=== PATIENT | female | born 1965 | race Caucasian/White ===

== ENCOUNTER 2016-12-05 11:22 | Inpatient (IN) ==
--- NOTE | 2016-12-05 17:33 | IRU History & Physical Report ---
HPI IRU Date: 718 Chief complaint: I'm weak HPI: Mrs. Pinedo has a rather complex past history of back problems and multiple sclerosis. Recently she underwent an instrumented posterior fusion from T11 down to L4 on December 01, 2016. The recent history starts several months ago when she was noticing worsening right neck pain. She has a history of prior fusion at C5-7 in 2008. She was referred to Dr. Bravo in [place]. He ordered a CT myelogram earlier this year demonstrating a problem with the neck with stenosis as well as lumbar spinal stenosis. He said that she would need surgery on both of those eventually and she chose to do the neck first. Cervical spine surgery was therefore done by Dr. Bravo on 09/01/2016 and she tolerated that well. Subsequently she underwent the lumbar spine surgery as noted above on December 01, 2016. She had had 2 previous lumbar laminectomies or otherwise lumbar surgeries in 2002 and 2008. Exact name of the procedure of those 2 procedures are not available at this time. The patient does have multiple sclerosis since 1994. As a result that she has left leg numbness and drop foot on the left side. At home, prior to this most recent lumbar spine surgery she did not use any assistive devices. She was independent for transfers, moderate independent for bathing and minimal assistance for lower extremity dressing, moderate independent for stairs and independent for grooming. However at the present time since the surgery she is maximal assist for bathing, upper and lower extremity dressing, total assistance for toileting minimal assistance for walking with a rolling walker. She does wear a back brace at the present time which is also a factor in her recovery. She did have some drainage from the surgical site. In addition she had an elevated white blood cell count. The patient does have obesity and is at high risk of infection as well as respiratory infection. She has risk for blood clots including DVTs and pulmonary embolism as well as risk for pain and leg weakness. This increases her risk for falling. Because of these risk factors, she is felt to be a good candidate for inpatient rehabilitation and is therefore admitted to the IRU. The following medical conditions are noted and require physician monitoring and treatment. 1. Multiple sclerosis with chronic leg weakness and left foot drop 2. Obesity with risk for infection 3. Recent drainage from laminectomy site 4. 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 Leukocytosis The following therapies will be needed: 1. Physical therapy: for transfers and ambulation and stairs. 2. Occupational therapy: for ADL's and transfers. 3. Dietitian: To improve nutrition and work on weight reduction by consuming fewer calories 4. Medical management: for the above conditions. 5. 24 hour Rehabilitation Nursing to monitor and address the following: Pain management and strengthening. Review of Systems - Constitutional Constitutional: Present: fatigue - EENMT Eyes: Present: change in vision (she reports chronic vision changes related to her multiple sclerosis.). Absent: blurry vision - Cardiovascular Cardiovascular: Absent: chest pain, palpitations, dyspnea on exertion Rhythm: Present: regular rhythm - Respiratory Respiratory: Absent: cough, dyspnea, hemoptysis, dyspnea on exertion - Gastrointestinal Gastrointestinal: Present: constipation. Absent: abdominal pain, change in bowel habits - Musculoskeletal Musculoskeletal: Present: abnormal gait, back pain - Neurological Neurological: Present: abnormal gait, burning sensations, focal weakness, paresthesias PFSH 1. Multiple sclerosis 2. Spinal stenosis 3. Hypertension 4. Obesity with BMI 44 5. Gastroesophageal reflux disease 6. Depression 7. Glaucoma 8. History of migraines 9. Restless leg syndrome Surgical History: 1. Lumbar spine surgery 2002. 2. Repeat lumbar spine surgery 2008. 3. Fusion C5-7 2008. 4. Cervical spine surgery 09/01/2016. 5. Posterior instrumented fusion T11-L4 12/01/2016. 5. Tonsillectomy and adenoidectomy. 6. PE tubes. 7. 3 C-sections. 8. Endometrial ablation. 9. Left foot surgery. 10. Right knee arthroscopy. 11. Appendectomy. 12. cholecystectomy Family History: Father: Living. Has spinal stenosis and hypertension. Mother: Living with hypertension, hyperlipidemia, back problems and knee problems - Social History Smoking status: Former smoker packs per day: 1 Packs-years: 23 (smoked from age 20 through age 43 one pack per day or less) Substance use type: does not use Alcohol intake: former Household members: spouse Current occupational status: disabled Current residence: Apartment/Private Home Medications Home Medications Medication Instructions Recorded Confirmed Type Amantadine [Symmetrel] 100 mg PO 0900,1300 12/05/16 12/05/16 History Baclofen [Lioresal] 1 tab PO BID 12/05/16 12/05/16 History Cholecalciferol (Vitamin D3) 1 tab PO DAILY 12/05/16 12/05/16 History [Vitamin D3] Cyanocobalamin (Vitamin B-12) 1 tab PO DAILY 12/05/16 12/05/16 History [Vitamin B-12] Cyclobenzaprine [Flexeril] 10 mg PO Q8H PRN 12/05/16 12/05/16 History Dexamethasone [Decadron] 4 mg IV Q6H 12/05/16 12/05/16 History Dimethyl Fumarate [Tecfidera] 240 mg PO BID 12/05/16 12/05/16 History Escitalopram Oxalate [Lexapro] 20 mg PO DAILY 12/05/16 12/05/16 History Hydrocodone/APAP 10/325 [[place] 1 - 2 tab PO Q4H PRN 12/05/16 12/05/16 History 10/325] Losartan Potassium [Cozaar] 100 mg PO HS 12/05/16 12/05/16 History Methylphenidate. [Ritalin] 10 mg PO 0900,1300 12/05/16 12/05/16 History Pantoprazole Sodium [Protonix] 40 mg PO ACB 12/05/16 12/05/16 History Pramipexole Di-HCl [Mirapex] 0.125 mg PO HS 12/05/16 12/05/16 History Pregabalin Cap [Lyrica] 50 mg PO BID 12/05/16 12/05/16 History Sennosides/Docusate Sodium 2 tab PO HS 12/05/16 12/05/16 History [Senokot-S Tablet] Spironolactone [Aldactone] 25 mg PO DAILY 12/05/16 12/05/16 History Results IRU - Labs Labs: Reviewed records from [place]. Exam Vital Signs: Temperature 98.0 F 12/05/16 16:00 Pulse Rate 90 12/05/16 16:00 Respiratory Rate 16 12/05/16 16:00 Blood Pressure 141/77 H 12/05/16 16:00 Pulse Oximetry 98 12/05/16 16:00 Oxygen Delivery Method Room Air Weight: 136.4 kg - Constitutional Present: mild distress - Routine HEENT Exam Head: Present: normocephalic, atraumatic Eye: Present: EOMI, PERRL ENT: Present: mucous membranes moist, oropharynx clear - Routine Neck Exam Present: supple, full ROM - Routine Respiratory Exam Present: CTA bilaterally - Routine Cardiovascular Exam Present: RRR, S1, S2, no murmur - Routine Abdominal Exam Present: soft, normoactive bowel sounds, non distended, non tender - Routine Extremities Exam Present: no edema - Routine Skin Exam Present: intact - Routine Neurological Exam Present: alert, oriented X3, CN II-XII intact, sensory deficit, moving all extremities - Routine Psychiatric Exam Present: normal affect, normal thought process, cooperative, good insight, good judgment IRU A/P (1) Status post laminectomy with spinal fusion Current visit: Yes Status: Acute Patient is status post laminectomy and will require pain management and strengthening of her lower extremities in view of her spinal stenosis. (2) Multiple sclerosis Current visit: Yes Status: Chronic She has chronic left foot drop and muscle weakness related to her multiple sclerosis. This is particularly noted in the left lower extremity. (3) Hypertension, benign essential, goal below 140/90 Current visit: Yes Status: Chronic (4) Obesity, Class III, BMI 40-49.9 (morbid obesity) Current visit: Yes Status: Chronic (5) Anemia Qualifiers: Anemia type: unspecified type Qualified Code(s): D64.9 - Anemia, unspecified Current visit: Yes Status: Acute Hemoglobin 11.1 in [place]. We will check this out further and monitor her hemoglobin. (6) Leukocytosis Qualifiers: Leukocytosis type: other Qualified Code(s): D72.828 - Other elevated white blood cell count Current visit: Yes Status: Acute White count is 14,000. May be related to corticosteroid usage versus infection. We'll monitor closely. DVT Prophylaxis: SCD's Resuscitation Status: Full Code - Course Hospital Course: Tunde Jackman MD: - Interventions to Obtain Goals Goals Progress/Modifications: Our goal will be to improve strength and ambulation, observe for evidence of infection, evaluate anemia and leukocytosis. Our intent is to get her back home where she can take care of herself safely.
--- NOTE | 2016-12-05 17:52 | IRU 24Hr Post Admit Eval ---
24 Hr Post Admission Physical - Relevant Changes Relevant Changes: No Reviewed: I have reviewed the patient's information and concur with the finding and results of the pre-admission screen. Certification: I certify the patient for rehabilitation. - Patient Condition (1) Status post laminectomy with spinal fusion Status: Acute Code(s): Z98.1 - Arthrodesis status Classification: Present on IRF Admission, IRF Tx That Should Address Diagnosis, Diagnosis Requiring Medical Follow Up (2) Multiple sclerosis Status: Chronic Code(s): G35 - Multiple sclerosis Classification: Present on IRF Admission, IRF Tx That Should Address Diagnosis, Diagnosis Requiring Medical Follow Up (3) Hypertension, benign essential, goal below 140/90 Status: Chronic Code(s): I10 - Essential (primary) hypertension Classification: Present on IRF Admission, Diagnosis Requiring Medical Follow Up (4) Obesity, Class III, BMI 40-49.9 (morbid obesity) Status: Chronic Code(s): E66.01 - Morbid (severe) obesity due to excess calories Classification: Present on IRF Admission, Diagnosis Requiring Medical Follow Up (5) Anemia Status: Acute Qualifiers: Anemia type: unspecified type Qualified Code(s): D64.9 - Anemia, unspecified Code(s): D64.9 - Anemia, unspecified Classification: Present on IRF Admission, Diagnosis Requiring Medical Follow Up (6) Leukocytosis Status: Acute Qualifiers: Leukocytosis type: other Qualified Code(s): D72.828 - Other elevated white blood cell count Code(s): D72.829 - Elevated white blood cell count, unspecified Classification: Present on IRF Admission, Diagnosis Requiring Medical Follow Up - Prior Functional Status Lives With: Spouse Residence Type: Apartment/Private Home Assitive Devices: None Prior Functional Status: Indep. at home or school, Used no assistive device - Current Functional Status Failed Alternative Therapy: Arrived from Acute Care Patient Requirements: The patient requires oversight by rehabilitation physician to manage their rehabilitation treatment plan and multidisciplinary approach to care that can only be provided in an IRF and requires a multidisciplinary approach to care, provided by professional PTs, OTs, STs, dieticians, RTs, rehabilitation nurses and is not available in lesser levels of care. Limitiations Req: Mobility Impairment, ADL Impairment, Limited Mobility Physical Therapy Minutes: 90 Occupational Therapy Minutes: 90 Therapy: The patient is to receive therapy at least 5 days a week. - Complications/Comorbidities Barriers to Discharge: Weakness, Balance, Endurance, Pain Control - Plan to Avoid Complications Plan to Avoid Complications: The patient cannot receive this care in a lesser intensive setting such as Senior Care or Outpatient Therapy due to the patient requiring the following : Need for 24-hour rehabilitation nursing monitoring of her pain, medical management and evaluation of anemia and leukocytosis, pre-existing multiple sclerosis with muscle weakness involving the left lower extremity requiring a coordinated inpatient approach .
[2016-12-05 18:49] VITALS: BMI 44.4
[2016-12-05] MEDS ORDERED: SENNA + DOCUSATE TABLET PO SCH (22:00)
[2016-12-05] MEDS: (Dimethyl Fumarate [Tecfidera] 240 MG) PO SCH (22:15)
[2016-12-05] MEDS: BACLOFEN 10 MG TABLET PO SCH (22:16)
[2016-12-05] MEDS: PREGABALIN 50 MG CAPSULE PO SCH (22:16)
[2016-12-05] MEDS: PRAMIPEXOLE 0.25 MG TABLET PO SCH (22:16)
[2016-12-05] MEDS: LOSARTAN 100 MG TABLET PO SCH (22:24)
[2016-12-05] MEDS: HYDROCODONE/APAP 10 MG/325 MG TABLET PO PRN (22:25)
[2016-12-05] MEDS: CYCLOBENZAPRINE 10 MG TABLET PO PRN (22:25)
[2016-12-06] MEDS: PANTOPRAZOLE 40 MG TABLET PO SCH (06:37)
[2016-12-06] MEDS: BACLOFEN 10 MG TABLET PO SCH ×2 (09:05→21:00)
[2016-12-06] MEDS: SPIRONOLACTONE 25 MG TABLET PO SCH (09:05)
[2016-12-06] MEDS: ESCITALOPRAM 20 MG TABLET PO SCH (09:05)
[2016-12-06] MEDS: METHYLPHENIDATE 10 MG TABLET PO SCH ×2 (09:05→13:09)
[2016-12-06] MEDS: AMANTADINE 100 MG CAPSULE PO SCH ×2 (09:07→13:11)
[2016-12-06] MEDS: PREGABALIN 50 MG CAPSULE PO SCH ×2 (09:08→21:00)
[2016-12-06] MEDS: CYANOCOBALAMIN (B-12) 500mcg TABLET PO SCH (09:08)
[2016-12-06] MEDS: (Dimethyl Fumarate [Tecfidera] 240 MG) PO SCH ×2 (09:11→21:02)
[2016-12-06] MEDS ORDERED: ELETRIPTAN 40 MG PO PRN (11:30)
--- NOTE | 2016-12-06 11:38 | IRU Progress Note ---
- Subjective/Serverity of Illness Samara says that she was able to sleep reasonably well during the night. She is standing at the sink with therapist present. She denies any shortness of breath or chest pain. She does have a tremor of the left upper extremity which she attributes to the multiple sclerosis. 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 However she is just getting started with therapy. She says that the pain is reasonably well controlled at present. It is noted that she has a prescription for cephalexin 4 times daily. This was not on the transferring orders however. I did call Dr. Bravo's office today and spoke with his nurse. She says that that is a standing order to provide Keflex 500 mg 4 times daily for 2 weeks. We will do this per his request. Exam Vital Signs: Temperature 98.2 F 12/06/16 09:47 Pulse Rate 96 12/06/16 09:47 Respiratory Rate 16 12/06/16 09:47 Blood Pressure 154/79 H 12/06/16 09:47 Pulse Oximetry 99 12/06/16 09:47 Oxygen Delivery Method Room Air Height: 1.75 m Weight: 136.4 kg Body Mass Index: 44.4 - Constitutional Present: mild distress, morbidly obese Comments: The patient is awake, alert and oriented and in no acute distress. Pupils are equal. The neck is supple. Chest: Clear to auscultation bilaterally. Cor: RR with no [place], click nor murmur Abd: soft with normo-active bowel sounds. There are no masses, no tenderness and no guarding. Extremities: No edema is noted. Cognition appears normal. There is evidence of tremor in the left upper extremity as well as bilateral muscle weakness. - Routine HEENT Exam Head: Present: normocephalic Eye: Present: EOMI ENT: Present: mucous membranes moist - Routine Respiratory Exam Present: CTA bilaterally - Routine Cardiovascular Exam Present: RRR, S1, S2, no murmur - Routine Extremities Exam Present: no edema Results IRU - Labs Labs: Reviewed laboratory demonstrating anemia. Sepsis Assessment - Evaluation Sepsis screening result: No Definite Risk IRU A/P (1) Status post laminectomy with spinal fusion Current visit: Yes Status: Acute We will initiate cephalexin 500 mg 4 times daily for 2 weeks per recommendation of Dr. Bravo. Wound appears to be stable at present. Pain is adequately controlled. Just getting started with therapy. (2) Multiple sclerosis Current visit: Yes Status: Chronic Does have evidence of left-sided weakness with left upper extremity tremor. Her multiple sclerosis impacts her functional recovery from her back surgery. (3) Hypertension, benign essential, goal below 140/90 Current visit: Yes Status: Chronic (4) Obesity, Class III, BMI 40-49.9 (morbid obesity) Current visit: Yes Status: Chronic We will recommend dietitian involvement. (5) Anemia Qualifiers: Anemia type: unspecified type Qualified Code(s): D64.9 - Anemia, unspecified Current visit: Yes Status: Acute Patient does have a low-grade anemia. Whether this is due to the recent surgeries is not clear at this time. (6) Leukocytosis Qualifiers: Leukocytosis type: other Qualified Code(s): D72.828 - Other elevated white blood cell count Current visit: Yes Status: Acute DVT Prophylaxis: SCD's Resuscitation Status: Full Code - Course Hospital Course: Tunde Jackman MD: 12/06/16 11:38 Will initiate cephalexin per request of surgeon. 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 Pain management appears to be adequate. - Interventions to Obtain Goals Goals Progress/Modifications: Please note that the patient's individual plan of care was developed and documented today, requiring review of therapy notes, medical conditions and anticipated functional recovery. This required additional medical decision making with regard to interaction of the patient's medical issues with the anticipated functional recovery. Please see separate document
--- NOTE | 2016-12-06 11:42 | IRU Plan of Care ---
[facility] Overall Plan of Care - Date Date: 12/06/16 - Patient Impairments (1) Status post laminectomy with spinal fusion Code(s): Z98.1 - Arthrodesis status Status: Acute Classification: Present on IRF Admission, IRF Tx That Should Address Diagnosis, Diagnosis Requiring Medical Follow Up (2) Multiple sclerosis Code(s): G35 - Multiple sclerosis Status: Chronic Classification: Present on IRF Admission, IRF Tx That Should Address Diagnosis, Diagnosis Requiring Medical Follow Up (3) Hypertension, benign essential, goal below 140/90 Code(s): I10 - Essential (primary) hypertension Status: Chronic Classification: Present on IRF Admission, Diagnosis Requiring Medical Follow Up (4) Obesity, Class III, BMI 40-49.9 (morbid obesity) Code(s): E66.01 - Morbid (severe) obesity due to excess calories Status: Chronic Classification: Present on IRF Admission, Diagnosis Requiring Medical Follow Up (5) Anemia Qualifiers: Anemia type: unspecified type Qualified Code(s): D64.9 - Anemia, unspecified Code(s): D64.9 - Anemia, unspecified Status: Acute Classification: Present on IRF Admission, Diagnosis Requiring Medical Follow Up (6) Leukocytosis Qualifiers: Leukocytosis type: other Qualified Code(s): D72.828 - Other elevated white blood cell count Code(s): D72.829 - Elevated white blood cell count, unspecified Status: Acute Classification: Present on IRF Admission, Diagnosis Requiring Medical Follow Up - Relevant Changes Relevant Changes: No Reviewed: I have reviewed the patient's information and concur with the finding and results of the pre-admission screen. Certification: I certify the patient for rehabilitation. - Medical Prognosis Medical Prognosis: Good Vital Signs: Last Vital Signs Temp 98.2 F 12/06/16 09:47 Pulse 96 12/06/16 09:47 Resp 16 12/06/16 09:47 BP 154/79 H 12/06/16 09:47 Pulse Ox 99 12/06/16 09:47 - Anticipated Interventions Anticipated Interventions: The patient requires inpatient IRF care for PT, OT, and/or ST for residuals remaining from lumbar spinal stenosis with recent laminectomy and instrumentation along with chronic multiple sclerosis myopathy and morbid obesity resulting in muscular weakness and strength deficits. Strength Deficits: Left Upper Extremity, Left Lower Extremity - Current Functional Status Failed Alternative Therapy: Arrived from Acute Care Patient Requires: The patient requires oversight by rehabilitation physician to manage their rehabilitation treatment plan and multidisciplinary approach to care that can only be provided in an IRF and requires a multidisciplinary approach to care, provided by professional PTs, OTs, STs, dieticians, RTs, rehabilitation nurses and is not available in lesser levels of care. Physical Therapy Minutes: 90 Occupational Therapy Minutes: 90 Therapy: The patient is to receive therapy at least 5 days a week. - Anticipated LOS/Outcomes Anticipated Functional Outcome: Goal is to return patient safely to home with the ability to safely transfer and ambulate with minimal discomfort, as well as perform activities of daily living. Anticipated DC Destination: Home, Self Retirement Safety Plan: The patient will be provided with the development of a Home Safety Plan for return to a home or home-like environment and and to ensure safety post discharge. - Plan to Avoid Complications Barriers to Attaining Goals: Weakness, Endurance, Pain Control Plan to Avoid Complications: The patient cannot receive this care in a lesser intensive setting such as Jail or Outpatient Therapy due to the patient requiring the following : Underlying multiple sclerosis with left-sided weakness and tremor, morbid obesity, recent increased drainage from wound noted in [place]. For these reasons she requires a multidisciplinary but individualized approach to therapy to return her home safely and avoid readmission.
--- NOTE | 2016-12-06 17:00 | Consult Note ---
<LawrenceJulioTori D - Last Filed: 12/06/16 17:31> Consult Information - Data of Consult Patient: new to practice Consult date: 12/06/16 Requesting Physician: Tunde Jackman MD Primary Care Provider: STACI VALENCIA [facility] Provider: STACI VALENCIA - Consult Narrative Reason for consult: MS, HTN, GERD History of present illness: Samara Pinedo is a 51-year-old woman seen in consultation from Dr. Jackman for medical management of multiple sclerosis, hypertension, restless leg, GERD, anxiety and depression. She underwent lumbar fusion on 12/01/[address] Olivo at [facility]. Drain was inserted, but was removal was delayed because of higher than expected drain output. During her hospital course, she was also found to have leukocytosis with a white count of 14.3 on 12/02/16 and 14.4 on 12/03/16, thought to be secondary to acute phase reaction plus steroid use. She was stable for discharge by 12/05/16, and was sent to [facility] IRU for strengthening. Samara was seen in the afternoon of 12/06/16. She has had previous back surgeries , so she understands how to reposition herself and ambulate safely. She states she has a high pain tolerance, and Percocet does a good job of keeping her pain levels at bay. Regarding her history multiple sclerosis, she hasn't had frequent exacerbations. When she does have an exacerbation, she notices increased left foot drop and left leg weakness. Review of records from [place] recommended outpatient evaluation for sleep apnea, however, she states that she had a sleep study within the last 5 years, which was negative. She has poor vision and wears glasses, secondary to history of glaucoma and "2 types of cataracts." She has a history of migraines, but denies one currently. She denies feeling weak or dizzy. No fevers, chills or sweating. She denies chest pain or shortness of breath. She denies cough or congestion. She denies any abdominal pain, nausea, vomiting, constipation or diarrhea. Her appetite has been stable. She denies any urinary symptoms. No rashes. PFSH Multiple sclerosis. Spinal stenosis. Anxiety and depression. Hypertension. Restless leg syndrome. GERD. Morbid obesity, BMI 44.4. Glaucoma. Migraines and ocular hypertension. Glaucoma, cataracts. Diverticulitis history. Surgical History: 1. Lumbar spine surgery 2002. 2. Repeat lumbar spine surgery 2008. 3. Fusion C5-7 2008. 4. Cervical spine surgery 09/01/2016. 5. Posterior instrumented fusion [id number] 12/01/2016. 5. Tonsillectomy and adenoidectomy. 6. PE tubes. 7. 3 C-sections. 8. Endometrial ablation. 9. Left foot surgery. 10. Right knee arthroscopy. 11. Appendectomy. 12. cholecystectomy Family History: Father has a history of coronary artery disease and coronary stents, hypertension, hyperlipidemia, spinal stenosis. Mother has a history of hypertension, hyperlipidemia, spinal stenosis. Possible diabetes. A maternal uncle and a cousin also have multiple sclerosis. - Social History Smoking status: Former smoker packs per day: 0.5 Packs-years: 15 Quit date: 04/30/08 Substance use type: does not use Alcohol intake frequency: does not drink Current occupational status: disabled Current residence: Apartment/Private Home Review of Systems Comprehensive ROS: completed and no additional positive findings except those as stated - Musculoskeletal Musculoskeletal: Present: as per HPI - Integumentary/Breasts Integumentary: Present: as per HPI Medications Home Medications Medication Instructions Recorded Confirmed Type Amantadine [Symmetrel] 100 mg PO 0900,1300 12/05/16 12/05/16 History Baclofen [Lioresal] 1 tab PO BID 12/05/16 12/05/16 History Cholecalciferol (Vitamin D3) 1 tab PO DAILY 12/05/16 12/05/16 History [Vitamin D3] Cyanocobalamin (Vitamin B-12) 1 tab PO DAILY 12/05/16 12/05/16 History [Vitamin B-12] Cyclobenzaprine [Flexeril] 10 mg PO Q8H PRN 12/05/16 12/05/16 History Dexamethasone [Decadron] 4 mg IV Q6H 12/05/16 12/05/16 History Dimethyl Fumarate [Tecfidera] 240 mg PO BID 12/05/16 12/05/16 History Escitalopram Oxalate [Lexapro] 20 mg PO DAILY 12/05/16 12/05/16 History Hydrocodone/APAP 10/325 [[place] 1 - 2 tab PO Q4H PRN 12/05/16 12/05/16 History 10/325] Losartan Potassium [Cozaar] 100 mg PO HS 12/05/16 12/05/16 History Methylphenidate. [Ritalin] 10 mg PO 0900,1300 12/05/16 12/05/16 History Pantoprazole Sodium [Protonix] 40 mg PO ACB 12/05/16 12/05/16 History Pramipexole Di-HCl [Mirapex] 0.125 mg PO HS 12/05/16 12/05/16 History Pregabalin Cap [Lyrica] 50 mg PO BID 12/05/16 12/05/16 History Sennosides/Docusate Sodium 2 tab PO HS 12/05/16 12/05/16 History [Senokot-S Tablet] Spironolactone [Aldactone] 25 mg PO DAILY 12/05/16 12/05/16 History Allergies Allergy/AdvReac Type Severity Reaction Status Date / Time adhesive tape Allergy Verified 12/05/16 18:48 cinnamon Allergy Verified 12/05/16 18:48 meperidine [From Demerol] Allergy Verified 12/05/16 18:48 morphine Allergy Verified 12/05/16 18:48 varenicline [From Chantix] Allergy Verified 12/05/16 18:48 Exam Vital Signs: Temperature 98.2 F 12/06/16 09:47 Pulse Rate 96 12/06/16 09:47 Respiratory Rate 16 12/06/16 09:47 Blood Pressure 154/79 H 12/06/16 09:47 Pulse Oximetry 99 12/06/16 09:47 Oxygen Delivery Method Room Air Height: 1.75 m Weight: 136.4 kg Body Mass Index: 44.4 - Constitutional Present: no acute distress, well nourished, well developed, obese - Routine HEENT Exam Eye: Present: PERRL. Absent: conjunctival icterus, scleral injection ENT: Present: mucous membranes moist, oropharynx clear - Routine Neck Exam Present: supple, trachea midline. Absent: lymphadenopathy - Routine Respiratory Exam Present: CTA bilaterally - Routine Cardiovascular Exam Present: RRR, S1, S2 - Routine Abdominal Exam Present: soft, normoactive bowel sounds, non distended, non tender - Routine Extremities Exam Present: no edema, pulses intact - Routine Back/Spine/Pelvis Exam Back image: 1 - Laminectomy incision. Just over a quarter-sized amount of serosanguineous drainage at proximal aspect. Tiny amount of drainage on the bandage along the entire length of the incision. No erythema. 2 - Small incision where drain was placed. No drainage and healing well. 3 - Incision healing well. - Routine Skin Exam Present: intact, dry, warm - Routine Neurological Exam Present: alert, oriented X3, CN II-XII intact, sensory deficit (chronic paresthesias to left lower extremity) - Routine Psychiatric Exam Present: normal affect, cooperative, good insight, good judgment Results - Labs CBC & Chem 7: 12/06/16 04:35 12/06/16 04:35 Assessment and Plan (1) Anemia Current visit: Yes Status: Acute (2) Status post laminectomy with spinal fusion Current visit: Yes Status: Acute (3) Leukocytosis Current visit: Yes Status: Acute Resuscitation Status: Full Code Assessment and Plan: Assessment Leukocytosis. Mild postoperative anemia. Lumbar stenosis L1-2 with lumbar radicular syndrome Multiple sclerosis. Spinal stenosis. Anxiety and depression. Hypertension. Restless leg syndrome. GERD. Morbid obesity, BMI 44.4. Glaucoma. Migraines and ocular hypertension. Plan Leukocytosis -Suspected to be acute phase reaction plus steroid use. -White count was over 14,000 prior to discharge from [facility]. On day of admission, leukocytosis improved to 9.7. Mild postoperative anemia. -Hemoglobin at [place] was 11.1, on admission to IRU, 11.0. -Estimated blood loss from surgery was 225 mL. Status post lumbar fusion by Dr. Olivo on 12/01/16; lumbar radicular syndrome; multiple sclerosis -PT and OT per attending - okay to be out of bed with her brace on. -Percocet per attending -Monitor incision for increasing drainage or evidence of infection. IRU nurse will contact Dr. Olivo's office to inquire about wound care. -She is on Keflex 4 times a day [address] Olivo. -Monitor for possible sclerosis exacerbation, typically presents as increased left foot drop. Anxiety, depression, hypertension, restless leg syndrome, GERD, glaucoma -Continue home medications Thank you for this consult. We will follow Samara during her stay in IRU. Hospital Course Summary Disclaimer: The visit summary below is not to be considered part of the above Progress Note. Hospital Course: 12/06/16 Assessment Leukocytosis. Mild postoperative anemia. Lumbar stenosis L1-2 with lumbar radicular syndrome Multiple sclerosis. Spinal stenosis. Anxiety and depression. Hypertension. Restless leg syndrome. GERD. Morbid obesity, BMI 44.4. Glaucoma. Migraines and ocular hypertension. Plan Leukocytosis -Suspected to be acute phase reaction plus steroid use. -White count was over 14,000 prior to discharge from [facility]. On day of admission, leukocytosis improved to 9.7. Mild postoperative anemia. -Hemoglobin at [place] was 11.1, on admission to IRU, 11.0. -Estimated blood loss from surgery was 225 mL. Status post lumbar fusion by Dr. Olivo on 12/01/16; lumbar radicular syndrome; multiple sclerosis -PT and OT per attending - okay to be out of bed with her brace on. -Percocet per attending -Monitor incision for increasing drainage or evidence of infection. IRU nurse will contact Dr. Olivo's office to inquire about wound care. -She is on Keflex 4 times a day [address] Olivo. -Monitor for possible sclerosis exacerbation, typically presents as increased left foot drop. Anxiety, depression, hypertension, restless leg syndrome, GERD, glaucoma -Continue home medications Thank you for this consult. We will follow Samara during her stay in IRU. Sepsis Assessment - Evaluation Sepsis screening result: No Definite Risk <Eden Cardenas - Last Filed: 12/06/16 19:58> Consult Information - Data of Consult Requesting Physician: Tunde Jackman MD Primary Care Provider: STACI VALENCIA Family Provider: STACI VALENCIA [facility] Patient Stated Medical History Cataracts Yes Glaucoma Yes Hypertension Yes Other Cardiology Yes: enlarged heart (per pt.) Constipation No Other Musculoskeletal Yes: MS, arthritis, spinal stenosis Other Yes: two cervical surgeries, multiple back surgeries (x3) Exam Vital Signs: Temperature 98.6 F 12/06/16 16:27 Pulse Rate 99 12/06/16 18:48 Respiratory Rate 14 12/06/16 18:48 Blood Pressure 149/71 H 12/06/16 16:27 Pulse Oximetry 97 12/06/16 18:48 Oxygen Delivery Method Room Air Height: 1.75 m Weight: 136.4 kg Results - Labs CBC & Chem 7: 12/06/16 04:35 12/06/16 04:35 Assessment and Plan (1) Status post laminectomy with spinal fusion Current visit: Yes Status: Acute (2) Anemia Current visit: Yes Status: Acute (3) Leukocytosis Current visit: Yes Status: Acute Assessment and Plan: 12/06/2016-I reviewed this chart, the patient history, and the LAVATORY ATTENDANT's/PA's documented findings as above. We discussed and formulated the assessment and plan as above with the additions below. I've seen and examined the patient independently.-Dr. Cardenas The patient states that she is doing fairly well. Pain control is doing well with her current medications. She was on Decadron IV for inflammation in her back postoperatively. She states that on occasion she has required steroids for an MS flare but is not chronically on steroids. Steroids were not resumed on this admission. MS is currently stable. Appetite is slowly improving. She is urinating without difficulty and having normal bowel movements. She denies any chest pain, shortness of breath or lightheadedness. On exam she is alert and oriented 3 and in no acute distress. Chest is clear to auscultation. Cardiovascular reveals a regular rate and rhythm. Abdomen is obese, soft and nontender with positive bowel sounds. Extremities are free of edema. Skin is warm and dry and without rashes. I did look at her back incision earlier today with her nurse practitioner. There is some mild drainage. No signs of erythema or any obvious infection. Continue on Keflex for 2 weeks as recommended by her surgeon. Continue usual home medications for MS. Continue losartan and spironolactone for hypertension. Patient may need to consider outpatient workup for sleep apnea. Hospital Course Summary Disclaimer: The visit summary below is not to be considered part of the above Progress Note.
[2016-12-06] MEDS: SENNA + DOCUSATE TABLET PO SCH (21:00)
[2016-12-06] MEDS: HYDROCODONE/APAP 10 MG/325 MG TABLET PO PRN ×2 (21:01→21:08)
[2016-12-06] MEDS: PRAMIPEXOLE 0.25 MG TABLET PO SCH (21:01)
[2016-12-06] MEDS: LOSARTAN 100 MG TABLET PO SCH (21:01)
[2016-12-06] MEDS: CYCLOBENZAPRINE 10 MG TABLET PO PRN (21:08)
[2016-12-07] MEDS: HYDROCODONE/APAP 10 MG/325 MG TABLET PO PRN ×2 (05:38→16:23)
[2016-12-07] MEDS: PANTOPRAZOLE 40 MG TABLET PO SCH (05:38)
[2016-12-07] MEDS: SPIRONOLACTONE 25 MG TABLET PO SCH (09:21)
[2016-12-07] MEDS: (Dimethyl Fumarate [Tecfidera] 240 MG) PO SCH ×2 (09:21→21:46)
[2016-12-07] MEDS: BACLOFEN 10 MG TABLET PO SCH ×2 (09:22→21:47)
[2016-12-07] MEDS: ESCITALOPRAM 20 MG TABLET PO SCH (09:22)
[2016-12-07] MEDS: PREGABALIN 50 MG CAPSULE PO SCH ×2 (09:22→21:48)
[2016-12-07] MEDS: METHYLPHENIDATE 10 MG TABLET PO SCH ×2 (09:23→13:01)
[2016-12-07] MEDS: CYANOCOBALAMIN (B-12) 500mcg TABLET PO SCH (09:24)
[2016-12-07] MEDS: AMANTADINE 100 MG CAPSULE PO SCH ×2 (09:26→13:02)
--- NOTE | 2016-12-07 11:05 | IRU Progress Note ---
- Subjective/Serverity of Illness Samara was evaluated in her room today. States that she sleeps about 2 hours in bed then gets up and sleeps in the chair for a well. Reports pain continues to be an issue impeding her progress. She is working on donning and doffing the back brace. Seems to be improving. Also working on transfers. Requires contact- guard assistance for supine to sit in bed. Overall is improving. Does have history of multiple sclerosis. This is a significant factor in her recovery as well. I was with Dr. Cardenas yesterday when we inspected her incision. Scant amount of drainage noted on the upper portion of the incision. Incision itself looks good without redness. Exam Vital Signs: Temperature 98.6 F 12/07/16 08:00 Pulse Rate 96 12/07/16 08:00 Respiratory Rate 18 12/07/16 08:00 Blood Pressure 136/75 12/07/16 08:00 Pulse Oximetry 95 12/07/16 08:00 Oxygen Delivery Method Room Air Height: 1.75 m Weight: 136.4 kg Body Mass Index: 44.4 - Constitutional Present: no acute distress Comments: The patient is awake, alert and oriented and in no acute distress. Pupils are equal. The neck is supple. Chest: Clear to auscultation bilaterally. Cor: RR with no ap[place], click nor murmur Abd: soft with normo-active bowel sounds. There are no masses, no tenderness and no guarding. Extremities: No edema is noted. No cyanosis is present. The patient's wound on her back is clean and dry and without inflammation. Sepsis Assessment - Evaluation Sepsis screening result: No Definite Risk IRU A/P (1) Status post laminectomy with spinal fusion Current visit: Yes Status: Acute Pain control is being worked on. She is working with occupational therapy and physical therapy. She is improving slowly. (2) Multiple sclerosis Current visit: Yes Status: Chronic Multiple ecchymosis is stable. However this does impact her recovery ability and timeframe. (3) Hypertension, benign essential, goal below 140/90 Current visit: Yes Status: Chronic Blood pressure appears to be well-controlled at present. (4) Obesity, Class III, BMI 40-49.9 (morbid obesity) Current visit: Yes Status: Chronic (5) Anemia Qualifiers: Anemia type: unspecified type Qualified Code(s): D64.9 - Anemia, unspecified Current visit: Yes Status: Acute Hemoglobin stable but slightly low. Blood loss at time of surgery was just over 200 cc. Per hospitalists. (6) Leukocytosis Qualifiers: Leukocytosis type: other Qualified Code(s): D72.828 - Other elevated white blood cell count Current visit: Yes Status: Resolved White count is now normal. DVT Prophylaxis: SCD's Resuscitation Status: Full Code - Course Hospital Course: Tunde Jackman MD: 12/06/16 11:38 Will initiate cephalexin per request of surgeon. 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 Pain management appears to be adequate. 12/07/16 11:07 Continues to work with occupational therapy and physical therapy. Requires contact-guard assistance for supine to sit in bed. Working on donning and doffing the back brace. Working on ambulation and transfers. - Interventions to Obtain Goals PT Treatment Plan: Balance/Proprioception, Functional Activities, Gait Training , Patient/Family Education, Therapeutic Exercise OT Treatment Plan: ADL (Basic Care), Balance Training, IADL, Pt./Family Education, Ther. Exercise for ADL
[2016-12-07] MEDS ORDERED: FALL RISK - PHARMACY CONSULT MC PRN (11:53)
[2016-12-07] MEDS: LOSARTAN 100 MG TABLET PO SCH (21:46)
[2016-12-07] MEDS: PRAMIPEXOLE 0.25 MG TABLET PO SCH (21:49)
[2016-12-07] MEDS: SENNA + DOCUSATE TABLET PO SCH (21:50)
[2016-12-08] MEDS: HYDROCODONE/APAP 10 MG/325 MG TABLET PO PRN ×4 (01:10→19:21)
[2016-12-08] MEDS: PANTOPRAZOLE 40 MG TABLET PO SCH ×2 (05:17→19:16)
[2016-12-08] MEDS: (Dimethyl Fumarate [Tecfidera] 240 MG) PO SCH ×2 (08:59→21:24)
[2016-12-08] MEDS: SPIRONOLACTONE 25 MG TABLET PO SCH (08:59)
[2016-12-08] MEDS: ESCITALOPRAM 20 MG TABLET PO SCH (09:00)
[2016-12-08] MEDS: PREGABALIN 50 MG CAPSULE PO SCH ×2 (09:01→21:24)
[2016-12-08] MEDS: BACLOFEN 10 MG TABLET PO SCH ×2 (09:01→21:24)
[2016-12-08] MEDS: AMANTADINE 100 MG CAPSULE PO SCH ×2 (09:02→12:24)
[2016-12-08] MEDS: CYCLOBENZAPRINE 10 MG TABLET PO PRN (09:03)
[2016-12-08] MEDS: METHYLPHENIDATE 10 MG TABLET PO SCH ×2 (09:03→12:23)
[2016-12-08] MEDS: CYANOCOBALAMIN (B-12) 500mcg TABLET PO SCH (09:04)
[2016-12-08] MEDS ORDERED: Bisacodyl EC TAB 5 MG TABLET PO ONE (16:58)
--- NOTE | 2016-12-08 16:58 | Progress Note ---
Subjective: Patient is seen in her room sitting on her bed before supper. She is wearing her brace. Overall she reports she was doing well. She states her pain is somewhat controlled with meds. Her dressing was just changed by the nurse and she reported a moderate amount of serosanguineous drainage on the dressing. Reports the incision area looks good, no evidence of infection. Patient hasn't had a bowel movement in the last few days. She prefers not to have milk of magnesia or MiraLAX, as she reports these make her nauseated. She is currently on senna-plus 2 pills daily at bedtime. She has no chest pain, shortness of breath, swelling or fever. She is wearing full-length compression stockings. Objective Vital signs: Temperature 98.9 F 12/08/16 11:49 Pulse Rate 75 12/08/16 11:49 Respiratory Rate 20 12/08/16 11:49 Blood Pressure 131/75 12/08/16 11:49 Pulse Oximetry 94 12/08/16 11:49 Oxygen Delivery Method Room Air Body Mass Index: 44.4 - Constitutional Present: no acute distress, well nourished, well developed - Routine HEENT Exam Head: Present: normocephalic, atraumatic ENT: Present: mucous membranes moist, dentition normal - Routine Respiratory Exam Present: CTA bilaterally. Absent: wheezes - Routine Cardiovascular Exam Present: RRR, S1, S2, murmur (grade 1-2) - Routine Abdominal Exam Present: soft, normoactive bowel sounds, non distended. Absent: tenderness - Routine Extremities Exam Present: no edema, normal capillary refill - Routine Skin Exam Present: dry, warm - Routine Neurological Exam Present: alert, oriented X3 - Routine Lymphatic Exam Lymphatic: Absent: adenopathy - Routine Psychiatric Exam Present: normal affect, normal thought process Results - Labs CBC & Chem 7: 12/06/16 04:35 12/06/16 04:35 Assessment and Plan (1) Status post laminectomy with spinal fusion Current visit: Yes Status: Acute (2) Anemia Current visit: Yes Status: Acute (3) Leukocytosis Current visit: No Status: Resolved Assessment and Plan: Assessment Constipation Leukocytosis-resolved Mild postoperative anemia. Lumbar stenosis L1-2 with lumbar radicular syndrome Multiple sclerosis. Spinal stenosis. Anxiety and depression. Hypertension. Restless leg syndrome. GERD. Morbid obesity, BMI 44.4. Glaucoma. Migraines and ocular hypertension Plan Will give her a bisacodyl 5 mg now. Increase her senna plus to 2 pills twice a day from 2 pills once a day. If she doesn't have results by tomorrow morning, could repeat bisacodyl or consider suppository. Given her postop anemia, will repeat labs on Sunday. Sepsis Assessment - Evaluation Sepsis screening result: No Definite Risk Hospital Course Summary Disclaimer: The visit summary below is not to be considered part of the above Progress Note. Hospital Course: 12/06/16 Assessment Leukocytosis. Mild postoperative anemia. Lumbar stenosis L1-2 with lumbar radicular syndrome Multiple sclerosis. Spinal stenosis. Anxiety and depression. Hypertension. Restless leg syndrome. GERD. Morbid obesity, BMI 44.4. Glaucoma. Migraines and ocular hypertension. Plan Leukocytosis -Suspected to be acute phase reaction plus steroid use. -White count was over 14,000 prior to discharge from [facility]. On day of admission, leukocytosis improved to 9.7. Mild postoperative anemia. -Hemoglobin at [place] was 11.1, on admission to IRU, 11.0. -Estimated blood loss from surgery was 225 mL. Status post lumbar fusion by Dr. Olivo on 12/01/16; lumbar radicular syndrome; multiple sclerosis -PT and OT per attending - okay to be out of bed with her brace on. -Percocet per attending -Monitor incision for increasing drainage or evidence of infection. IRU nurse will contact Dr. Olivo's office to inquire about wound care. -She is on Keflex 4 times a day [address] Olivo. -Monitor for possible sclerosis exacerbation, typically presents as increased left foot drop. Anxiety, depression, hypertension, restless leg syndrome, GERD, glaucoma -Continue home medications Thank you for this consult. We will follow Samara during her stay in IRU.
[2016-12-08] MEDS: SENNA + DOCUSATE TABLET PO SCH (21:23)
[2016-12-08] MEDS: PRAMIPEXOLE 0.25 MG TABLET PO SCH (21:23)
[2016-12-08] MEDS: LOSARTAN 100 MG TABLET PO SCH (21:24)
[2016-12-09] MEDS: CYCLOBENZAPRINE 10 MG TABLET PO PRN ×2 (00:22→21:16)
[2016-12-09] MEDS: HYDROCODONE/APAP 10 MG/325 MG TABLET PO PRN ×3 (00:22→21:16)
[2016-12-09] MEDS: PANTOPRAZOLE 40 MG TABLET PO SCH (06:58)
[2016-12-09] MEDS: PREGABALIN 50 MG CAPSULE PO SCH ×2 (09:31→21:09)
[2016-12-09] MEDS: SPIRONOLACTONE 25 MG TABLET PO SCH (09:31)
[2016-12-09] MEDS: SENNA + DOCUSATE TABLET PO SCH ×2 (09:31→21:09)
[2016-12-09] MEDS: ESCITALOPRAM 20 MG TABLET PO SCH (09:32)
[2016-12-09] MEDS: METHYLPHENIDATE 10 MG TABLET PO SCH ×2 (09:32→14:27)
[2016-12-09] MEDS: CYANOCOBALAMIN (B-12) 500mcg TABLET PO SCH (09:33)
[2016-12-09] MEDS: BACLOFEN 10 MG TABLET PO SCH ×2 (09:33→21:09)
[2016-12-09] MEDS: AMANTADINE 100 MG CAPSULE PO SCH ×2 (09:33→14:27)
[2016-12-09] MEDS: (Dimethyl Fumarate [Tecfidera] 240 MG) PO SCH ×2 (09:34→21:15)
[2016-12-09] MEDS: LOSARTAN 100 MG TABLET PO SCH (21:08)
[2016-12-09] MEDS: PRAMIPEXOLE 0.25 MG TABLET PO SCH (21:08)
[2016-12-10] MEDS: SPIRONOLACTONE 25 MG TABLET PO SCH (09:07)
[2016-12-10] MEDS: ESCITALOPRAM 20 MG TABLET PO SCH (09:08)
[2016-12-10] MEDS: BACLOFEN 10 MG TABLET PO SCH ×2 (09:08→21:18)
[2016-12-10] MEDS: (Dimethyl Fumarate [Tecfidera] 240 MG) PO SCH ×2 (09:08→21:18)
[2016-12-10] MEDS: PREGABALIN 50 MG CAPSULE PO SCH ×2 (09:09→21:18)
[2016-12-10] MEDS: METHYLPHENIDATE 10 MG TABLET PO SCH ×2 (09:09→13:35)
[2016-12-10] MEDS: AMANTADINE 100 MG CAPSULE PO SCH ×2 (09:09→13:36)
[2016-12-10] MEDS: CYANOCOBALAMIN (B-12) 500mcg TABLET PO SCH (09:09)
[2016-12-10] MEDS: SENNA + DOCUSATE TABLET PO SCH ×2 (09:09→21:18)
[2016-12-10] MEDS: HYDROCODONE/APAP 10 MG/325 MG TABLET PO PRN ×3 (09:10→21:20)
[2016-12-10] MEDS: CYCLOBENZAPRINE 10 MG TABLET PO PRN ×2 (09:11→21:18)
--- NOTE | 2016-12-10 13:33 | Progress Note ---
Subjective: Samara was seen shortly after lunch today. She states she is doing better. Her pain is under reasonable control. She thinks the drainage to her back has been improving. She denies any fevers or chills. She denies any difficulty breathing or chest pain. No abdominal pain or GI complaints. Her appetite is improving. She had a bowel movement yesterday. She states that she might be able to go home tomorrow, and feels fairly good about this plan. She denies any indication of an MS exacerbation. Objective Vital signs: Temperature 97.8 F 12/10/16 08:00 Pulse Rate 83 12/10/16 08:00 Respiratory Rate 18 12/10/16 08:00 Blood Pressure 141/71 H 12/10/16 08:00 Pulse Oximetry 98 12/10/16 08:00 Oxygen Delivery Method Room Air Body Mass Index: 44.4 - Constitutional Present: no acute distress, well nourished, well developed, obese - Routine Respiratory Exam Present: CTA bilaterally - Routine Cardiovascular Exam Present: RRR, S1, S2 - Routine Abdominal Exam Comments: TLSO brace in place, abdominal exam very limited - Routine Extremities Exam Present: no edema - Routine Back/Spine/Pelvis Exam Back/Spine: Absent: full ROM (TLSO brace) - Routine Musculoskeletal Exam Musculoskeletal: Present: no clubbing or cyanosis - Routine Skin Exam Present: intact, dry, warm - Routine Neurological Exam Present: alert, oriented X3 - Routine Psychiatric Exam Present: normal affect, normal thought process, cooperative Results - Labs CBC & Chem 7: 12/06/16 04:35 12/06/16 04:35 Assessment and Plan (1) Anemia Current visit: Yes Status: Acute (2) Leukocytosis Current visit: No Status: Resolved (3) Status post laminectomy with spinal fusion Current visit: Yes Status: Acute Resuscitation Status: Full Code Assessment and Plan: Assessment Constipation Leukocytosis-resolved Mild postoperative anemia. Lumbar stenosis L1-2 with lumbar radicular syndrome Multiple sclerosis. Spinal stenosis. Anxiety and depression. Hypertension. Restless leg syndrome. GERD. Morbid obesity, BMI 44.4. Glaucoma. Migraines and ocular hypertension Plan Discussed with RN: No incisional drainage noted today. Constipation is improving, had bowel movement yesterday. Repeat CBC and BMP tomorrow. Possible discharge soon. Sepsis Assessment - Evaluation Sepsis screening result: No Definite Risk Hospital Course Summary Disclaimer: The visit summary below is not to be considered part of the above Progress Note. Hospital Course: 12/06/16 Assessment Leukocytosis. Mild postoperative anemia. Lumbar stenosis L1-2 with lumbar radicular syndrome Multiple sclerosis. Spinal stenosis. Anxiety and depression. Hypertension. Restless leg syndrome. GERD. Morbid obesity, BMI 44.4. Glaucoma. Migraines and ocular hypertension. Plan Leukocytosis -Suspected to be acute phase reaction plus steroid use. -White count was over 14,000 prior to discharge from [facility]. On day of admission, leukocytosis improved to 9.7. Mild postoperative anemia. -Hemoglobin at [place] was 11.1, on admission to IRU, 11.0. -Estimated blood loss from surgery was 225 mL. Status post lumbar fusion by Dr. Olivo on 12/01/16; lumbar radicular syndrome; multiple sclerosis -PT and OT per attending - okay to be out of bed with her brace on. -Percocet per attending -Monitor incision for increasing drainage or evidence of infection. IRU nurse will contact Dr. Olivo's office to inquire about wound care. -She is on Keflex 4 times a day [address] Olivo. -Monitor for possible sclerosis exacerbation, typically presents as increased left foot drop. Anxiety, depression, hypertension, restless leg syndrome, GERD, glaucoma -Continue home medications Thank you for this consult. We will follow Samara during her stay in IRU.
[2016-12-10] MEDS: LOSARTAN 100 MG TABLET PO SCH (21:17)
[2016-12-10] MEDS: PRAMIPEXOLE 0.25 MG TABLET PO SCH (21:17)
[2016-12-11] MEDS: PANTOPRAZOLE 40 MG TABLET PO SCH (05:51)
[2016-12-11] MEDS: HYDROCODONE/APAP 10 MG/325 MG TABLET PO PRN ×3 (06:38→20:03)
[2016-12-11] MEDS: SPIRONOLACTONE 25 MG TABLET PO SCH (08:53)
[2016-12-11] MEDS: ESCITALOPRAM 20 MG TABLET PO SCH (08:55)
[2016-12-11] MEDS: PREGABALIN 50 MG CAPSULE PO SCH ×2 (08:55→21:45)
[2016-12-11] MEDS: BACLOFEN 10 MG TABLET PO SCH ×2 (08:56→21:45)
[2016-12-11] MEDS: SENNA + DOCUSATE TABLET PO SCH ×2 (08:57→21:45)
[2016-12-11] MEDS: METHYLPHENIDATE 10 MG TABLET PO SCH ×2 (09:00→13:56)
[2016-12-11] MEDS: CYANOCOBALAMIN (B-12) 500mcg TABLET PO SCH (09:00)
[2016-12-11] MEDS: AMANTADINE 100 MG CAPSULE PO SCH ×2 (09:00→13:30)
[2016-12-11] MEDS: (Dimethyl Fumarate [Tecfidera] 240 MG) PO SCH ×2 (09:00→21:44)
--- NOTE | 2016-12-11 10:27 | IRU Progress Note ---
- Subjective/Serverity of Illness Samara was evaluated in her room. She is doing very well. She anticipates going home soon. She is able to transfer without difficulty. She is managing with her brace well. With regard to her multiple sclerosis, she remained stable. She denies any exacerbation at present. Her previously noted leukocytosis has resolved. With regard to therapies, she is improving nicely. She is standby assist/ supervision for most activities with physical therapy. She is modified independent for dressing etc. for OT. Anticipate home soon. Exam Vital Signs: Temperature 98.4 F 12/10/16 20:00 Pulse Rate 90 12/10/16 20:00 Respiratory Rate 16 12/10/16 20:00 Blood Pressure 143/68 H 12/10/16 20:00 Pulse Oximetry 97 12/10/16 20:00 Oxygen Delivery Method Room Air Height: 1.75 m Weight: 136.4 kg Body Mass Index: 44.4 - Constitutional Present: no acute distress Comments: The patient is awake, alert and oriented and in no acute distress. Pupils are equal. The neck is supple. Chest: Clear to auscultation bilaterally. Cor: RR with no aparna, click nor murmur Abd: soft with normo-active bowel sounds. There are no masses, no tenderness and no guarding. Extremities: No edema is noted. Results IRU - Labs Labs: I have reviewed the hospitalists notes as well as labs. Sepsis Assessment - Evaluation Sepsis screening result: No Definite Risk IRU A/P (1) Status post laminectomy with spinal fusion Current visit: Yes Status: Acute Patient seems to be neurologically stable with regard to her laminectomy and spinal fusion. Pain management continues to be an issue. She was on tramadol prior to the surgery in August. (2) Multiple sclerosis Current visit: Yes Status: Chronic She does have multiple sclerosis characterized predominately by left-sided weakness. Seems to be stable at present. Pain management in this regard is managed with baclofen and Lyrica. (3) Hypertension, benign essential, goal below 140/90 Current visit: Yes Status: Chronic Blood pressure remains borderline elevated at about 143. She is asymptomatic. (4) Obesity, Class III, BMI 40-49.9 (morbid obesity) Current visit: Yes Status: Chronic (5) Anemia Qualifiers: Anemia type: unspecified type Qualified Code(s): D64.9 - Anemia, unspecified Current visit: Yes Status: Acute Hemoglobin is 10.5. Likely this is worse because of dilution although may be some component of anemia of chronic disease. DVT Prophylaxis: SCD's Resuscitation Status: Full Code - Course Hospital Course: Tunde Jackman MD: 12/06/16 11:38 Will initiate cephalexin per request of surgeon. 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 Pain management appears to be adequate. 12/07/16 11:07 Continues to work with occupational therapy and physical therapy. Requires contact-guard assistance for supine to sit in bed. Working on donning and doffing the back brace. Working on ambulation and transfers. 12/11/16 10:27 She is improving nicely. She is modified independent for most activities for occupational therapy and standby assist/supervision for activities with regard to PT. Medically she is stable. Her leukocytosis has resolved. Continues to have hypertension. 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 She is improving with regard to strength however. - Interventions to Obtain Goals PT Treatment Plan: Balance/Proprioception, Functional Activities, Gait Training , Patient/Family Education, Therapeutic Exercise OT Treatment Plan: ADL (Basic Care), Balance Training, IADL, Pt./Family Education, Ther. Exercise for ADL
[2016-12-11 19:26] VITALS: RESP 18
[2016-12-11] MEDS: LOSARTAN 100 MG TABLET PO SCH (21:44)
[2016-12-11] MEDS: PRAMIPEXOLE 0.25 MG TABLET PO SCH (21:45)
[2016-12-12] MEDS: HYDROCODONE/APAP 10 MG/325 MG TABLET PO PRN ×2 (00:01→13:32)
[2016-12-12] MEDS: PANTOPRAZOLE 40 MG TABLET PO SCH ×2 (05:53→05:55)
[2016-12-12 08:32] VITALS: BP 129/69; PULSE 73; TEMP 98.6; O2SAT 99
[2016-12-12] MEDS: CYANOCOBALAMIN (B-12) 500mcg TABLET PO SCH (08:56)
[2016-12-12] MEDS: SENNA + DOCUSATE TABLET PO SCH (08:56)
[2016-12-12] MEDS: METHYLPHENIDATE 10 MG TABLET PO SCH ×2 (08:56→13:11)
[2016-12-12] MEDS: PREGABALIN 50 MG CAPSULE PO SCH (08:56)
[2016-12-12] MEDS: AMANTADINE 100 MG CAPSULE PO SCH ×2 (08:56→13:11)
[2016-12-12] MEDS: ESCITALOPRAM 20 MG TABLET PO SCH (08:56)
[2016-12-12] MEDS: SPIRONOLACTONE 25 MG TABLET PO SCH (08:57)
[2016-12-12] MEDS: (Dimethyl Fumarate [Tecfidera] 240 MG) PO SCH (08:57)
[2016-12-12] MEDS: BACLOFEN 10 MG TABLET PO SCH (08:57)
--- NOTE | 2016-12-12 10:15 | IRU Progress Note ---
- Subjective/Serverity of Illness Samara was interviewed and examined in her room today. She continues to improve. She states that she can doff and Don her brace by herself. She is able to take a sponge bath on her own. She would like to go home. We will reassess that at noon at the team meeting. I reviewed the therapy notes. She is improving. She is standby assistance or modified independent for most activities. She is using a front-wheeled walker. She will require a change director and some other medical equipment to go home. Her multiple sclerosis is stable. Pain control is fairly good. She has some [place] at home. Exam Vital Signs: Temperature 98.6 F 12/12/16 08:00 Pulse Rate 73 12/12/16 08:00 Respiratory Rate 18 12/12/16 08:00 Blood Pressure 129/69 12/12/16 08:00 Pulse Oximetry 99 12/12/16 08:00 Oxygen Delivery Method Room Air Height: 1.75 m Weight: 136.4 kg Body Mass Index: 44.4 - Constitutional Present: no acute distress Comments: The patient is awake, alert and oriented and in no acute distress. Seems to be very cooperative and works hard. Pupils are equal. The neck is supple. Chest: Clear to auscultation bilaterally. Cor: RR with no aparna, click nor murmur Abd: Difficult to examine with brace in place. Extremities: No edema is noted. No cyanosis is present. Sepsis Assessment - Evaluation Sepsis screening result: No Definite Risk IRU A/P (1) Status post laminectomy with spinal fusion Current visit: Yes Status: Acute Pain is controlled. Able to care for herself with modified independent status for most activities. (2) Multiple sclerosis Current visit: Yes Status: Chronic (3) Hypertension, benign essential, goal below 140/90 Current visit: Yes Status: Chronic Blood pressure has remained stable. Seems to be fairly well-controlled. (4) Obesity, Class III, BMI 40-49.9 (morbid obesity) Current visit: Yes Status: Chronic (5) Anemia Qualifiers: Anemia type: unspecified type Qualified Code(s): D64.9 - Anemia, unspecified Current visit: Yes Status: Acute DVT Prophylaxis: SCD's Resuscitation Status: Full Code - Course Hospital Course: Tunde Jackman MD: 12/06/16 11:38 Will initiate cephalexin per request of surgeon. 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 Pain management appears to be adequate. 12/07/16 11:07 Continues to work with occupational therapy and physical therapy. Requires contact-guard assistance for supine to sit in bed. Working on donning and doffing the back brace. Working on ambulation and transfers. 12/11/16 10:27 She is improving nicely. She is modified independent for most activities for occupational therapy and standby assist/supervision for activities with regard to PT. Medically she is stable. Her leukocytosis has resolved. Continues to have hypertension. 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 She is improving with regard to strength however. 12/12/16 10:16 She has progressed nicely with therapy. We will reevaluate at team meeting this And likely send her home today. - Interventions to Obtain Goals PT Treatment Plan: Balance/Proprioception, Functional Activities, Gait Training , Patient/Family Education, Therapeutic Exercise OT Treatment Plan: ADL (Basic Care), Balance Training, IADL, Pt./Family Education, Ther. Exercise for ADL
--- NOTE | 2016-12-12 13:51 | Discharge Instructions ---
Discharge Plan - Med Rec/Dispo Additional Instructions: Take Keflex for 4 more days then stop Prescriptions: New CephALEXin [Keflex] 500 mg PO QID 4 Days #16 capsule Amantadine [Symmetrel] 100 mg PO 0900,1300 capsule Continue Cyanocobalamin (Vitamin B-12) [Vitamin B-12] 1 tab PO DAILY Spironolactone [Aldactone] 25 mg PO DAILY Cyclobenzaprine [Flexeril] 10 mg PO Q8H PRN PRN Reason: Spasms Sennosides/Docusate Sodium [Senokot-S Tablet] 2 tab PO HS Pramipexole Di-HCl [Mirapex] 0.125 mg PO HS Pantoprazole Sodium [Protonix] 40 mg PO ACB Methylphenidate. [Ritalin] 10 mg PO 0900,1300 Escitalopram Oxalate [Lexapro] 20 mg PO DAILY Dimethyl Fumarate [Tecfidera] 240 mg PO BID Cholecalciferol (Vitamin D3) [Vitamin D3] 1 tab PO DAILY Pregabalin Cap [Lyrica] 50 mg PO BID Losartan Potassium [Cozaar] 100 mg PO HS Baclofen [Lioresal] 1 tab PO BID No Action Dexamethasone [Decadron] 4 mg IV Q6H Amantadine [Symmetrel] 100 mg PO 0900,1300 Hydrocodone/APAP 10/325 [[place] 10/325] 1 - 2 tab PO Q4H PRN PRN Reason: Pain
--- NOTE | 2016-12-12 14:46 | Discharge Instructions ---
Discharge Plan - Med Rec/Dispo Additional Instructions: Take Keflex for 4 more days then stop Prescriptions: New CephALEXin [Keflex] 500 mg PO QID 4 Days #16 capsule Hydrocodone/APAP 10/325 [[place] 10/325] 1 tab PO Q6H PRN #30 tablet PRN Reason: Pain Amantadine [Symmetrel] 100 mg PO 0900,1300 capsule Continue Cyanocobalamin (Vitamin B-12) [Vitamin B-12] 1 tab PO DAILY Spironolactone [Aldactone] 25 mg PO DAILY Cyclobenzaprine [Flexeril] 10 mg PO Q8H PRN PRN Reason: Spasms Sennosides/Docusate Sodium [Senokot-S Tablet] 2 tab PO HS Pramipexole Di-HCl [Mirapex] 0.125 mg PO HS Pantoprazole Sodium [Protonix] 40 mg PO ACB Methylphenidate. [Ritalin] 10 mg PO 0900,1300 Escitalopram Oxalate [Lexapro] 20 mg PO DAILY Dimethyl Fumarate [Tecfidera] 240 mg PO BID Cholecalciferol (Vitamin D3) [Vitamin D3] 1 tab PO DAILY Pregabalin Cap [Lyrica] 50 mg PO BID Losartan Potassium [Cozaar] 100 mg PO HS Baclofen [Lioresal] 1 tab PO BID No Action Dexamethasone [Decadron] 4 mg IV Q6H Amantadine [Symmetrel] 100 mg PO 0900,1300 Hydrocodone/APAP 10/325 [[place] 10/325] 1 - 2 tab PO Q4H PRN PRN Reason: Pain Discharge Instructions/Outpatient Orders: Final Provider Discharge Instructions Location: Determined By Patient - Disposition 01 Discharged Home, Self-Care
--- NOTE | 2016-12-12 15:16 | Discharge Summary ---
Discharge Information Date of admission: 12/05/16 15:44 Anticipated date of discharge: 12/12/16 Attending Physician: Tunde Jackman MD Primary care physician: POLO KAN Consults: 12/05/16 17:54 Physician Consult [CONS] Routine Consulting Provider: Meng Pierce Reason For Exam: Medical management Ordering Provider has Notified Seo Engineer: No 12/06/16 11:43 Dietary Consult [CONS] Routine Comment: Reason For Exam: Morbid obesity which impairs functional improvemen - Discharge Diagnosis Discharge Diagnosis: 1. Back pain S/P laminectomy and instrumented fusion T11-L4 on December 01, 2016 2. Multiple sclerosis with left leg weakness 3. Morbid obesity with BMI 44 4. 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 Anemia: uncertain cause - Laboratory Labs: 12/11/16 04:36 12/11/16 04:36 History of Present Illness HPI: 12/12/16 15:14 Ms. Pinedo is a patient of Dr. Polo Kan in [place]. She has a complex past history of back problems and multiple sclerosis. She underwent effusion of C5-7 in 2008. Recent initially she developed worsening right neck pain several months ago she states. She was referred to Dr. Bravo in [place]. CT myelogram was performed demonstrating stenoses both in the cervical spine and lumbar spine areas. She underwent cervical spine surgery by Dr. Bravo on 09/01/2016 via an anterior approach. She tolerated that well. Subsequently she underwent lumbar spine surgery on 12/01/2016 consisting of instrumented posterior fusion from T11 down to L4. Postoperatively she did have some excess drainage from the wound. The patient was quite weak from a muscular standpoint following surgery. She does have obesity and is at risk for infection as well as risk for blood clots. Patient was felt to be a good candidate for inpatient rehabilitation and was therefore admitted to the inpatient rehabilitation unit at [facility]. Hospital Course This is a general summary of the patient's hospital course. For more details refer to the complete medical record. Samara is a very pleasant 51-year-old female who presents to the inpatient rehabilitation unit following her back surgery which was quite extensive. She was kept an extra day in [place] because of some excess drainage. Dr. Bravo also placed her on 2 weeks of cephalexin. However no definite evidence of infection was noted by inspection of the wound. There was just a small amount of drainage here from the surgical site in the wrist appear portion. This resolved. The patient was seen by physical therapy for transfers, strengthening, ambulation. She improved from standby assist to modified independent functioning for most transfers. She did well with walking. She did best with a front-wheeled walker and we recommend she stay on that for the time being. She was also seen by occupational therapy. She improved with upper and lower extremity dressing to modified independent functioning. She is to wear her brace every time she is up and about. Medically speaking, her myopathy improved with regard to strengthening. Her multiple sclerosis was addressed through her usual medications. She was also seen by dietitian with regard to recommendations for weight control. She also has a history of hypertension. Blood pressures were running in the 140 range for the most part. The patient was dismissed in improved condition on 12/12/2016 on medications as noted. I did give her a written prescription for hydrocodone with acetaminophen 10/325 #30 tablets. At the time of dismissal she is afebrile unable to eat well. It is noted that she has had some low-grade anemia with hemoglobin around 10 g percent. Etiology is not clear and I'm not certain if this was present prior to her admission or not. She has appointment in [place] to see Dr. Bravo or his colleague in follow-up in the next several days. (Time spent with patient and in preparation of records for dismissal: [id number] hours: 45 minutes. Hospital course: 12/06/16 Assessment Leukocytosis. Mild postoperative anemia. Lumbar stenosis L1-2 with lumbar radicular syndrome Multiple sclerosis. Spinal stenosis. Anxiety and depression. Hypertension. Restless leg syndrome. GERD. Morbid obesity, BMI 44.4. Glaucoma. Migraines and ocular hypertension. Plan Leukocytosis -Suspected to be acute phase reaction plus steroid use. -White count was over 14,000 prior to discharge from [facility]. On day of admission, leukocytosis improved to 9.7. Mild postoperative anemia. -Hemoglobin at [place] was 11.1, on admission to IRU, 11.0. -Estimated blood loss from surgery was 225 mL. Status post lumbar fusion by Dr. Olivo on 12/01/16; lumbar radicular syndrome; multiple sclerosis -PT and OT per attending - okay to be out of bed with her brace on. -Percocet per attending -Monitor incision for increasing drainage or evidence of infection. IRU nurse will contact Dr. Olivo's office to inquire about wound care. -She is on Keflex 4 times a day [address] Olivo. -Monitor for possible sclerosis exacerbation, typically presents as increased left foot drop. Anxiety, depression, hypertension, restless leg syndrome, GERD, glaucoma -Continue home medications Thank you for this consult. We will follow Samara during her stay in IRU. Time spent with patient: 25 - 35 minutes Discharge Plan - Med Rec/Dispo Additional Instructions: Take Keflex for 4 more days then stop Prescriptions: New CephALEXin [Keflex] 500 mg PO QID 4 Days #16 capsule Hydrocodone/APAP 10/325 [[place] 10/325] 1 tab PO Q6H PRN #30 tablet PRN Reason: Pain Amantadine [Symmetrel] 100 mg PO 0900,1300 capsule Continue Cyanocobalamin (Vitamin B-12) [Vitamin B-12] 1 tab PO DAILY Spironolactone [Aldactone] 25 mg PO DAILY Cyclobenzaprine [Flexeril] 10 mg PO Q8H PRN PRN Reason: Spasms Sennosides/Docusate Sodium [Senokot-S Tablet] 2 tab PO HS Pramipexole Di-HCl [Mirapex] 0.125 mg PO HS Pantoprazole Sodium [Protonix] 40 mg PO ACB Methylphenidate. [Ritalin] 10 mg PO 0900,1300 Escitalopram Oxalate [Lexapro] 20 mg PO DAILY Dimethyl Fumarate [Tecfidera] 240 mg PO BID Cholecalciferol (Vitamin D3) [Vitamin D3] 1 tab PO DAILY Pregabalin Cap [Lyrica] 50 mg PO BID Losartan Potassium [Cozaar] 100 mg PO HS Baclofen [Lioresal] 1 tab PO BID No Action Dexamethasone [Decadron] 4 mg IV Q6H Amantadine [Symmetrel] 100 mg PO 0900,1300 Hydrocodone/APAP 10/325 [[place] 10/325] 1 - 2 tab PO Q4H PRN PRN Reason: Pain Discharge Instructions/Outpatient Orders: Final Provider Discharge Instructions Location: Determined By Patient
--- NOTE | 2016-12-12 15:33 | IRU Team Meeting ---
IRU Team Meeting - Nursing Vital Signs: Vital Signs - 24 hr 12/11/16 16:00 12/11/16 19:23 12/12/16 08:00 Temperature 87.5 F L 98.7 F 98.6 F Pulse Rate 86 73 Respiratory Rate 18 18 Blood Pressure 132/73 141/67 H 129/69 Pulse Oximetry 97 97 99 Current Medications: Acetaminophen/Hydrocodone Bitart ([place] 10/325) 1 - 2 tab PO Q4H PRN PRN Reason: Pain Last Admin: 12/12/16 13:32 Dose: 1 tab Amantadine HCl (Symmetrel) 100 mg PO 0900,1300 [facility] Last Admin: 12/12/16 13:11 Dose: 100 mg Baclofen (Lioresal) 10 mg PO BID [facility] Last Admin: 12/12/16 08:57 Dose: 10 mg Cephalexin HCl (Keflex) 500 mg PO QID [facility] Last Admin: 12/12/16 13:11 Dose: 500 mg Cholecalciferol (Vit. D-3) 1,000 unit PO DAILY [facility] Last Admin: 12/12/16 08:56 Dose: 1,000 unit Cyanocobalamin (Vit. B-12) 500 mcg PO DAILY [facility] Last Admin: 12/12/16 08:56 Dose: 500 mcg Cyclobenzaprine HCl (Flexeril) 10 mg PO Q8H PRN PRN Reason: Spasms Last Admin: 12/10/16 21:18 Dose: 10 mg Eletriptan (Relpax) 40 mg PO PRN PRN PRN Reason: Migraine headache Escitalopram Oxalate (Lexapro) 20 mg PO DAILY [facility] Last Admin: 12/12/16 08:56 Dose: 20 mg Losartan Potassium (Cozaar) 100 mg PO 2100 [facility] Last Admin: 12/11/16 21:44 Dose: 100 mg Methylphenidate HCl (Ritalin) 10 mg PO 0900,1300 [facility] Last Admin: 12/12/16 13:11 Dose: 10 mg (Dimethyl Fumarate [ (Tecfidera] 240 Mg)) 240 mg PO BID [facility] Last Admin: 12/12/16 08:57 Dose: 240 mg Pantoprazole Sodium (Protonix Tab) 40 mg PO ACB [facility] Last Admin: 12/12/16 05:55 Dose: 40 mg Pramipexole Dihydrochloride (Mirapex) 0.125 mg PO 2100 [facility] Last Admin: 12/11/16 21:45 Dose: 0.125 mg Pregabalin (Lyrica) 50 mg PO BID [facility] Last Admin: 12/12/16 08:56 Dose: 50 mg Senna/Docusate Sodium (Senna Plus Tablet) 2 tab PO BID [facility] Last Admin: 12/12/16 08:56 Dose: 2 tab Spironolactone (Aldactone) 25 mg PO DAILY [facility] Last Admin: 12/12/16 08:57 Dose: 25 mg Comments: Patient is taking hydrocodone 10 mg 2-3 times daily. Her pain appears to be adequately controlled. Her blood pressures are monitored with blood pressures are running 140 systolic. She is anxious to go home. - Physical Therapy Comments: Has been very cooperative and is working hard with physical therapy. She has met her goals. She is walking with a walker greater than 300 feet. She will be sent home with a walker as well as a hip kit which includes a grabbing device etc. She will also need a toilet riser with handles at home. She will likely need to be involved with further outpatient physical therapy in [place]. - Occupational Therapy Lower Body Dressing Comment: She was very cooperative with occupational therapy. She improved from standby assist to modified independent functioning with upper and lower extremity dressing. She was able to don and doff the brace by herself. She is felt to be stable to go home from an occupational therapy standpoint. - Care Plan Anticipated DC Destination: Home, Self Care (she has just missed today on improved condition. She will likely stay with her mother for a few days and do some outpatient physical therapy and occupational therapy.)
== END 2016-12-12 16:00 | disposition home or self-care (01) | DRG 560 ==
PROVIDERS: ADMIT Internal Medicine; ATTEND Internal Medicine